=== PATIENT | female | born 1965 | race Caucasian/White ===

== ENCOUNTER 2018-07-24 08:22 | Day surgery (SDC) | payer BC ==
[2018-07-11 18:11] VITALS: BMI 23.8
[2018-07-24 12:00] VITALS: BP 122/71; PULSE 55; TEMP 97.6
== END 2018-07-24 12:15 | disposition home or self-care (01) ==
LOC: FASU 08:22
PROVIDERS: ATTEND Internal Medicine Gastroenterology
PROC: 0DJD8ZZ Inspection of Lower Intestinal Tract, Via Natural or Artificial Opening Endoscopic (ICD-10-PCS; principal; 2018-07-24 11:08)
DX: Z12.11 Encounter for screening for malignant neoplasm of colon (principal); K92.1 Melena; K64.2 Third degree hemorrhoids
CPT/HCPCS: 84703